=== PATIENT | female | born 1960 | race Caucasian/White ===

== ENCOUNTER 2017-08-23 08:53 | Outpatient (CLI) ==
[2015-02-09 04:29] VITALS: BMI 28.2
--- NOTE | 2017-08-24 10:11 | MAMMO ---
EXAM: Screening mammogram with 3-D tomosynthesis and CAD HISTORY: Screening mammogram. COMPARISON: Mammogram 08/23/2016 and 08/07/2014 FINDINGS: Breast density demonstrates scattered fibroglandular densities. There is a round mass in th e right upper outer breast at middle that approximately 5.7 cm from the nipple. This is not identifi ed on prior examinations and measures approximately 0.4 cm in diameter. The left wrist demonstrates no focal abnormality. IMPRESSION: Right upper outer breast mass. Recommendations: Diagnostic right breast mammogram with potential ultrasound. BIRADS 0: Needs further evaluation.
== END 2017-08-23 08:54 | disposition home or self-care (01) ==
LOC: RAD 08:53
PROVIDERS: ATTEND Family Medicine
DX: Z12.31 Encounter for screening mammogram for malignant neoplasm of breast (principal)
CPT/HCPCS: 77067

== ENCOUNTER 2017-08-31 08:51 | Outpatient (CLI) ==
[2015-02-09 04:29] VITALS: BMI 28.2
--- NOTE | 2017-08-31 10:16 | MAMMO ---
EXAM: Diagnostic right breast mammogram and ultrasound HISTORY: Abnormal mammogram COMPARISON: Mammogram 08/31/2017 FINDINGS: Mammogram: Spot compression CC and MLO views of the right breast were performed. There is a persistent asymmetr y in the lateral to superior right breast posterior depth. Ultrasound: Ultrasound right breast was performed at the 9 o'clock - 1 o'clock position. At the 9 o'clock f posi tion and 9 cm from the nipple, there is a 0.2 x 0.2 x 0.2 cm cyst with mild internal echoes. This pro bably corresponds with the finding on mammogram. IMPRESSION: Right breast mammographic asymmetry with a mildly complicated cyst on ultrasound. These findings are probably benign. Follow-up diagnostic mammogram and ultrasound recommended in 6 months to ensure stability. BIRADS category 3, probably benign
== END 2017-08-31 08:52 | disposition home or self-care (01) ==
LOC: RAD 08:51
PROVIDERS: ATTEND Family Medicine
DX: N63.10 Unspecified lump in the right breast, unspecified quadrant (principal)

== ENCOUNTER 2018-08-18 09:57 | Outpatient (CLI) | payer OTHER ==
[2015-02-09 04:29] VITALS: BMI 28.2
--- NOTE | 2018-08-18 15:16 | CT ---
EXAM: CT of the soft tissue neck with contrast History: Bilateral neck pain and swelling. Technique: Multiplanar CT images through the soft tissue neck were obtained following administration of IV contrast Findings: The visualized upper lungs are clear. Moderate to severe degenerative disc disease at C6- 7. No prevertebral soft tissue swelling. Epiglottis is not thickened. The visualized paranasal sin uses and mastoid air cells are clear in general. The visualized intracranial contents demonstrate no abnormality. Orbits are intact. Parotid glands are unremarkable. The palpable abnormalities corre late to the bilateral submandibular glands but they do not appear to be inflamed. No pathologically enlarged lymph nodes. A few tiny benign appearing bilateral thyroid nodules. No abscess. No inflam matory stranding. No peritonsillar inflammation. Impression: 1. No acute findings are seen within the soft tissue neck. 2. The palpable abnormalities correlate with the bilateral submandibular glands but these do not gail ear to be inflamed. 3. Moderate to severe degenerative disc disease at C6-7.
== END 2018-08-18 09:58 | disposition home or self-care (01) ==
LOC: RAD 09:57
PROVIDERS: ATTEND Family Medicine
DX: R22.1 Localized swelling, mass and lump, neck (principal)